=== PATIENT | male | born 1990 | race Two or more races ===

== ENCOUNTER 2022-06-19 10:21 | Emergency (ER) | payer OTHER ==
[~2022-06-19] VITALS: Ht 188 cm; Wt 70.0 kg
[2022-06-19 10:26] VITALS: BP 125/74
[2022-06-19] MEDS ORDERED: ACETAMINOPHEN 500MG TABLET PO ONE (11:30)
[2022-06-19] MEDS ORDERED: IBUP-2029 MT (12:03)
== END 2022-06-19 12:15 | disposition home or self-care (01) ==
LOC: ER 10:21
DX: S90.31XA Contusion of right foot, initial encounter (principal); X58.XXXA Exposure to other specified factors, initial encounter; Y93.89 Activity, other specified; Y92.89 Other specified places as the place of occurrence of the external cause; Y99.8 Other external cause status
CPT/HCPCS: 73610; 73630; 99284